=== PATIENT | male | born 2005 | race American Indian/Alaskan Native ===

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

== ENCOUNTER 2023-12-23 23:32 | Emergency (ER) | payer MEDICAID ==
[2023-12-24 00:03] VITALS: BP 148/97; PULSE 70
[2023-12-24] MEDS: Nystatin Crm 15 GM Tube TOP ONE (01:20)
== END 2023-12-24 01:34 | disposition home or self-care (01) ==
LOC: DL.ED 23:32
DX: B37.49 Other urogenital candidiasis (principal); B85.2 Pediculosis, unspecified; Z88.0 Allergy status to penicillin
CPT/HCPCS: 99282; A9270

== ENCOUNTER 2024-01-11 17:01 | Emergency (ER) | payer MEDICAID ==
[2024-01-11 17:25] VITALS: BP 113/80; PULSE 88
[2024-01-11] MEDS: Sulfamethoxazole/Trimethoprim 800-160 MG Tab PO ONE (17:55)
== END 2024-01-11 18:10 | disposition home or self-care (01) ==
LOC: DL.ED 17:01
DX: L60.0 Ingrowing nail (principal); F17.210 Nicotine dependence, cigarettes, uncomplicated; Z88.0 Allergy status to penicillin
CPT/HCPCS: 99283; A9270-GY

== ENCOUNTER 2024-02-09 20:42 | Emergency (ER) | payer MEDICAID ==
[2024-02-09] MEDS: Lidocaine 1% 5 ML VIAL INJECT ONE (21:18)
[2024-02-09] MEDS: Silver Nitrate Applicator Each TOP ONE (21:38)
[2024-02-09] MEDS: Silver Nitrate Applicator Each ONE (22:01)
[2024-02-09] MEDS: Bacitracin Oint 1 GM U/D Packet TOP ONE (22:01)
[2024-02-09 22:21] VITALS: BP 170/97; PULSE 93
== END 2024-02-09 22:27 | disposition home or self-care (01) ==
LOC: DL.ED 20:42
DX: L60.0 Ingrowing nail (principal); F17.210 Nicotine dependence, cigarettes, uncomplicated; Z88.0 Allergy status to penicillin
CPT/HCPCS: 11765; 99283; A9270; 99282; J3490

== ENCOUNTER 2024-12-29 10:50 | Emergency (ER) | payer MEDICAID ==
[2024-12-29 11:01] VITALS: BP 144/79; PULSE 62
[2024-12-29] MEDS: Dexamethasone 4 MG/ML SDV IM ONE (11:09)
== END 2024-12-29 11:10 | disposition home or self-care (01) ==
LOC: DL.ED 10:50
DX: T63.444A Toxic effect of venom of bees, undetermined, initial encounter (principal); T63.454A Toxic effect of venom of hornets, undetermined, initial encounter; T63.464A Toxic effect of venom of wasps, undetermined, initial encounter; Z88.0 Allergy status to penicillin
CPT/HCPCS: 96372; 99282; J1100